=== PATIENT | female | born 1990 | race Caucasian/White ===

== ENCOUNTER → 2020-10-12 15:03 | Outpatient (BNVA) | payer OTHER, SELFPAY | PROVIDERS: Family Provider Family Medicine; PCP Family Medicine; Visit Provider Obstetrics & Gynecology | DX: Z12.4 Encounter for screening for malignant neoplasm of cervix (principal) | CPT/HCPCS: 88175 ==

== ENCOUNTER → 2021-11-01 13:20 | Outpatient (BNVA) | payer BC, SELFPAY | PROVIDERS: Family Provider Family Medicine; PCP Family Medicine; Visit Provider Obstetrics & Gynecology | DX: Z12.4 Encounter for screening for malignant neoplasm of cervix (principal) | CPT/HCPCS: 87624 ==

== ENCOUNTER → 2022-01-24 08:20 | Outpatient (BNVA) | payer BC, SELFPAY | PROVIDERS: Family Provider Family Medicine; PCP Family Medicine; Visit Provider Obstetrics & Gynecology | DX: N93.9 Abnormal uterine and vaginal bleeding, unspecified (principal) | CPT/HCPCS: 81025 ==

== ENCOUNTER → 2022-01-29 15:00 | Outpatient (BNVA) | payer BC, SELFPAY | PROVIDERS: Family Provider Family Medicine; PCP Family Medicine; Visit Provider Obstetrics & Gynecology | DX: N93.9 Abnormal uterine and vaginal bleeding, unspecified (principal); Z30.431 Encounter for routine checking of intrauterine contraceptive device | CPT/HCPCS: 84146; 84443; 85027 ==

== ENCOUNTER → 2022-02-27 09:20 | Outpatient (BNVA) | payer BC, SELFPAY | PROVIDERS: Family Provider Family Medicine; PCP Family Medicine; Visit Provider Obstetrics & Gynecology | DX: T83.32XA Displacement of intrauterine contraceptive device, initial encounter (principal) | CPT/HCPCS: 76830 ==

== ENCOUNTER → 2022-05-28 08:49 | Outpatient (BNVA) | payer BC, SELFPAY | PROVIDERS: PCP Family Medicine; Visit Provider Obstetrics & Gynecology | DX: N93.9 Abnormal uterine and vaginal bleeding, unspecified (principal); Z01.812 Encounter for preprocedural laboratory examination | CPT/HCPCS: 80053; 81000; 81025; 85025; 86850; 86900 ==

== ENCOUNTER 2022-05-30 07:35 | Day surgery (SDC) | payer BC, SELFPAY ==
[2022-05-23 09:42] VITALS: BMI 26.7
--- NOTE | 2022-05-23 14:52 | ANES.PREANE2 ---
Pre-Anesthetic Assessment Height/Weight: Height 1.52 m Weight 62.142 kg Preop Diagnosis: AUB Operation Date: 05/30/22 09:25 Proposed Procedures p Endometrial ablation 06384,N93.9(Not Applicable) - Derik Rowley MD Familial anesthetic complications: Mother of patient had hypothermia under anesthesia and patient reports on in another instance patient had possible hyperactive reaction to succynilcholine where she became agitated and pulling at monitors Was Beta Dina taken within 24 hours: N/A Was Clonidine taken within 24 hours: N/A Social Tobacco and No alcohol Exam alert, oriented x 3, clear to auscultation bilaterally and regular rate & rhythm Airway Submandibular: within normal limits Cervical ROM: within normal limits Mallampati: Class I Dentition: full History/ROS No significant complaints Pulmonary None reported CV/HEM None reported AUB Hepatic None reported GI None reported Metabolic None reported Musc/skel None reported Neuropsych Anxiety Anesthetic Plan ASA status: 2 Anesthesia: Anesthesia Evaluation, General and MAC Other: We discussed risk and benefits of general anesthesia including PONV, sore throat (sometimes severe), corneal abrasion, positioning and peripheral nerve injuries, life threatening allergic reaction, post operative ICU admission requiring prolonged intubation, aspiration, stroke, heart attack, , and rare incidences of recall. I discussed with the patient risks, goals, and benefits of MAC and general anesthesia. We discussed spectrum of MAC anesthesia including conversion to general as well as possibility of recall of intraoperative stimuli including discomfort/pain. Patient consents to MAC or General pending further discussion with surgeon. Risk of > 500 ml blood loss (7ml/kg in children): No Medications/Allergies Home Medications Medication Instructions Recorded Confirmed Last Taken Type No Known Home Medications 04/20/22 04/20/22 Unknown History Allergies Allergy/AdvReac Type Severity Reaction Status Date / Time Penicillins AdvReac Intermediate rash-states Verified 04/20/22 15:40 that Keflex also causes rash ciprofloxacin [From Cipro] AdvReac rash Verified 04/20/22 15:40 [facility] Anesthesia Medical History Anxiety Diagnosed in her early 20s and has been on medication on and off. Most recently citalopram since 2019 and this is managed by her primary care provider. Does not have a psychiatrist/therapist No pertinent past medical history Denies diabetes, asthma, hypertension, seizures, DVT/PE PCP: Dr. Segundo Surgical History S/P section 04/26/2015-primary low transverse delivery for breech presentation in active labor by Dr. Arroyo at [facility] [place]. Tubal ligation was done at this time. Status post tubal ligation 04/26/2015-tubal ligation done at time of . Pathology showed complete transection bilaterally with normal morphology. Family History Grandfather Diabetes paternal Hypertension paternal Heart disease paternal Mother Hyperlipidemia Grandmother Diabetes paternal Denies family history of Colon cancer Ovarian cancer Clotting disorder Bleeding disorder Uterine cancer Thyroid disease Stroke Data Anesthesia Cardiac Studies: No Data to Display
[2022-05-30] VITALS (9 sets, daily range): BP systolic 93–117; BP diastolic 60–84; PULSE 75–97; RESP 15–21; TEMP 36.1–36.2; O2SAT 96–100
[2022-05-30 08:00] LABS: OR HCG Qualitative Urine Negative (Negative)
[2022-05-30] MEDS: sodium chloride 0.9% 500 ML IV (08:02)
[2022-05-30] MEDS: scopolamine 1.5 Patch 1 PATCH TRANSDERMA (08:03)
--- NOTE | 2022-05-30 08:11 | W.PM.OPSUD ---
Surgery/Procedure H&P Update DATE OF PROCEDURE: May 30, 2022 DATE H&P PERFORMED: 05/28/22 H&P UPDATE INFORMATION: I have reviewed H&P completed within last 30 days, I have examined patient prior to procedure and No changes to prior documentation PREOP DIAGNOSIS: Abnormal uterine bleeding PLANNED PROCEDURE: Operation Date: 05/30/22 09:25 Proposed Procedures p Hysteroscopy w/ Ablation w/ Novasure(Not Applicable) - Derik Rowley MD s Dilation And Curettage (D&C)(Not Applicable) - Derik Rowley MD
--- NOTE | 2022-05-30 08:13 | P.ANESUD_ITS ---
Pre-Anesthetic Update Pre-Anesthetic Assessment: Date of Surgery/Procedure: 05/30/22 Preop Karla gnosis: Abnormal uterine bleeding Proposed Procedure: Operation Date: 05/30/22 09:25 Proposed Procedures p Hysteroscopy w/ Ablation w/ Novasure(Not Applicable) - Derik Rowley MD s Dilation And Curettage (D&C)(Not Applicable) - Derik Rowley MD Any changes to Pre-Anesthetic Assessment?: No Last Intake: Intake Last Liquid Date 05/29/22 Last Liquid Time 23:00 Last Solid Date 05/29/22 Last Solid Time 16:00 Vitals: Temperature 97.2 F L 05/30/22 07:52 Temperature Source Temporal Artery S can 05/30/22 07:52 Pulse Rate 88 05/30/22 07:52 Respiratory Rate 16 05/30/22 07:52 Blood Pressure 111/67 05/30/22 07:52 Blood Pressure Michela n 81 05/30/22 07:52 Pulse Oximetry 100 05/30/22 07:52 Oxygen Delivery Me thod 05/30/22 07:52 Exam: Pre-Anes Outpt Exam: alert, oriented x 3, clear to auscultation bilaterally and regular rate & rhythm Other Pertinent Information: Other Pertinent Information: Mother states she had a temperature issue with one anesthetic. She can' remember if it was high or low. She was told they were concerned about it for a little bit, but it came back to normal. Mother has also experienced extreme post-op agitation and fell out of her bed upon awakening Cardiac Studies: No Data to Display
[2022-05-30] MEDS: ceFAZolin 2,000 MG in sodium chloride 0.9% (plus) 50 ML 100 MG IV (08:34)
[2022-05-30] MEDS: sodium chloride 0.9% 500 ML 999 ML IV (09:30)
--- NOTE | 2022-05-30 09:35 | PM.OP ---
Operative Report Date of procedure: May 30, 2022 Pre-op diagnosis: Preop Diagnosis Abnormal uterine bleeding Post-op diagnosis: Same as above Post-op findings: Disordered endometrium Procedure done: Hysteroscopy. Dilation and curettage. Endometrial ablation via NovaSure Specimens removed/disposition: Endometrial curettings Surgeon: Derik Rowley MD Estimated blood loss (mL): 10 IV fluids (mL): 800 Complications: None Brief History: Ms. Leos is a 32 year-old female who presented to the office for abnormal uterine bleeding. Ultrasound imaging did not reveal any submucosal fibroids or polyps. An endometrial biopsy was done which was normal. Conservative therapies including TXA, OCP, and Mirena were discussed/tried. Ultimately, a plan was made to proceed with a novosure endometrial ablation. Risks, potential complications, and benefits were discussed with Ms. Leos and consent was signed prior to the OR. Procedure: After informed consent, this is a 32-year-old patient who has completed childbearing; and she has a tubal ligation. The patient desired control for abnormal uterine bleeding. She declined other more conservative options such as oral contraceptive pills and Mirena intrauterine device. The patient desired an ablation. Risks of the surgery, which include risk of infection, bleeding, urine perforation; were discussed in detail with the patient. Patient was also informed that is not advised after having an ablation procedure done. Patient verbalized understanding of the risks, and informed consent was obtained. The patient was taken to the operating room where general anesthesia was administered. The patient was examined under anesthesia and found to have a normal uterus with normal adnexa. She was placed in the dorsal lithotomy position and prepped and draped in sterile fashion. A weighted speculum was placed in the vagina, and the anterior lip of cervix was grasped with the single toothed tenaculum. The uterus was then gently sounded to 9 cm. The length of the cervical canal was 3.0 cm and the canal was dilated to 8 mm with Jeanine?s dialators. and the 2.7 cm hysteroscope advanced gently to the uterine fundus while visualizing the monitor. Survey of the uterine cavity showed: fundus normal proliferative endometrium; left and right ostiums visualized, anterior wall with proliferative endometrium; and posterior wall with proliferative endometrium; the endocervical canal is normal. No intrauterine lesions noted. The hysteroscope was removed. A curette was advanced gently to the uterine fundus and rotated to clear the uterus. A sharp curettage wan then performed until a gritty texture was noted. There was minimal bleeding noted. The sterile CenTrakaSure? Disposable Device package was opened, connected and tested per instructions. It was found to be working properly. The device?s array is completely enclosed by the external sheath and the WIDTH dial reads approximately 0.5 cm. The appropriate cavity length settings was set 6.0 cm. Adjust and lock the cavity length setting feature on the Disposable Device to the value obtained. The Cervical Collar was fully retracted to its proximal position. Confirmed that the cervix was dilated to 8.0 mm. While maintaining a slight traction on the tenaculum to minimize the angle of the uterus. In-line with the axis of the uterus the Disposable Device was inserted transcervically into the uterine cavity and advance the device until the distal end of the sheath touched the fundus. The handles were slowly squeezed up to the point of increased resistance without locking it. The WIDTH dial read 4.5 cm. The Disposable Device handles were slowly squeezed together while gently moving the Disposable Device -0.5 cm to and from the fundus and rotating the handle of the Disposable Device 45? counterclockwise from the vertical plane and 45? clockwise from the vertical plane until the handles locked and confirmed the with dial read greater than 2.5 cm. The Disposable Device was gently moved using anterior, posterior and lateral movements. The Disposable Device was slightly pulled back until the WIDTH dial reading reduced by approximately 0.2-0.5 cm. While holding the tenaculum, the Disposable Device was advance to the fundus, maintaining slight forward pressure. The WIDTH dial read to the previous measurement. The Cervical Collar was slide forward until it forms a seal against the external cervical os. The value indicated on the width dial into the CenTrakaSure? RF Controller. In Automatic Mode the Cavity Integrity Assessment (TOMÁS) procedure by stepping on the foot switch once was began. The cavity integrity assessment LED signaled the test has passed after several attmptes that failed because a in-line filter was placed and after trouble shooting the isuue was resolved and after placing the the filter the cavity assesment passed without issues. Then the ablation cycle started was after the successful completion of the Cavity Integrity Assessment test. Termination of the ablation was automatic at 42 seconds at 149w. The Cervical Collar was slide it to its proximal position. The Disposable Device was unlock, holding the front assistant analyst stationary and pulling the rear handles backwards until the Closed Array indicator reads closed the Disposable Device was withdrawn from the uterine cavity. A hysteroscopy was performed post ablation to confirm therapy it was noted that endometrial cavity had been thoroughly ablated. Prior to this, a sharp curettage was performed, and endometrial curettings were also collected. Patient did have an endometrial biopsy in the office as well, which was negative. The hysteroscope and the tenaculum were removed with goad hemostasis noted. The patient tolerated the procedure well. The patient was taken to the recovery area in stable condition.
--- NOTE | 2022-05-30 18:06 | ANE.PACU2 ---
Inpatient post-anesthesia follow up: Airway intact: Yes Vital signs: Temperature 97.1 F Pulse Rate 75 Respiratory Rate 18 Blood Pressure 117/84 Pulse Oximetry 100 Oxygen Delivery Me thod Room Air Oxygen Flow Rate 0 Fraction of Inspir ed Oxygen Hydration adequate: Yes Nausea and vomiting: No Pain level: 1 Mental status: Baseline
== END 2022-05-30 10:43 | disposition home or self-care (01) ==
PROVIDERS: Anesthesiology; PCP Family Medicine; Visit Provider Obstetrics & Gynecology
PROC: 0U598ZZ Destruction of Uterus, Via Natural or Artificial Opening Endoscopic (ICD-10-PCS; CPT 58563; principal; 2022-05-30 09:15)
PROC: (CPT 58120; 2022-05-30 09:15)
DX: N93.9 Abnormal uterine and vaginal bleeding, unspecified (principal)
CPT/HCPCS: 58558; 81025; 84703; 88305; J1100; J1885; J2405; J2704; J3010; J7040

== ENCOUNTER → 2023-01-08 09:00 | Outpatient (BNVA) | payer BC, SELFPAY | PROVIDERS: PCP Family Medicine; Visit Provider Nurse Practitioner Women's Health | DX: Z01.419 Encounter for gynecological examination (general) (routine) without abnormal findings (principal) | CPT/HCPCS: 87624 ==

== ENCOUNTER 2024-12-18 08:38 | Outpatient (CLI) | payer BC, SELFPAY ==
--- NOTE | 2024-12-18 08:55 | NM_ITS ---
WS: [id number] NUCLEAR MEDICINE HIDA SCAN WITH GALLBLADDER EJECTION FRACTION HISTORY: RUQ PAIN COMPARISON: None available. TECHNIQUE: The patient was intravenously injected with 7.4 mCi of TC99m Mebrofenin. Immediate imaging over the right upper quadrant was followed by 5 minute image and additional images for a total of 60 minutes. Normal uptake of radiotracer throughout the liver. Activity identified in the gallbladder at 10 minutes and well distended by 60 minutes. Activity in the proximal small bowel was seen by 20 minutes. Good washout of the radiotracer from the liver by 60 minutes. The patient then drank 8 ounces of Ensure Plus. Ejection fraction at 60 minutes was 36%. Normal GB ejection fraction is 35-75%. Post fatty meal symptoms: None. NM/NM hepatobiliary w phar* [id number] IMPRESSION: 1. Normal HIDA scan. 2. Low normal gallbladder ejection fraction.
== END 2024-12-18 08:39 | disposition home or self-care (01) ==
LOC: RAD 08:38
PROVIDERS: PCP Family Medicine; Visit Provider Registered Nurse
DX: R10.11 Right upper quadrant pain (principal); R93.3 Abnormal findings on diagnostic imaging of other parts of digestive tract
CPT/HCPCS: 78227; A9537

== ENCOUNTER 2025-08-13 07:50 | Outpatient (CLI) | payer BC, SELFPAY ==
--- NOTE | 2025-08-13 07:45 | US_ITS ---
WS: [id number] US pelv w/transvag [id number] HISTORY: R10.20 - Pelvic and perineal pain unspecified side COMPARISON: 02/27/2022 Uterus: 8.2 cm x 4.8 cm x 4.0 cm. Normal anteverted uterus. Mild heterogeneity of the myometrium but no fibroid or mass identified. Endometrium: 0.4 cm. Normal size endometrium. IUD is no longer present. C- section scar noted. Right ovary: 3.6 cm x 1.7 cm x 3.9 cm. Normal size and vascularity, no cystic or solid masses. Small ovarian follicles. Left ovary: 3.4 cm x 2.7 cm x 3.1 cm. Normal size and vascularity, no cystic or solid masses. Small ovarian follicles. Small amount of free fluid. US/US pelv w/transvag [id number] IMPRESSION: 1. Normal endometrium. No mass or increased vascularity. 2. IUD has been removed since the prior study from 02/27/2022. 3. Normal ovaries.
== END 2025-08-13 07:51 | disposition home or self-care (01) ==
LOC: RAD 07:51
PROVIDERS: PCP Family Medicine; Visit Provider Obstetrics & Gynecology
DX: R10.20 Pelvic and perineal pain unspecified side (principal); Z30.432 Encounter for removal of intrauterine contraceptive device
CPT/HCPCS: 76830; 76856